=== PATIENT | female | born 1995 | race Two or more races ===

== ENCOUNTER 2020-03-01 11:13 | Inpatient (IN) | payer OTHER, BC ==
[~2020-03-01] VITALS: Ht 152.4 cm; Wt 78.0 kg
--- NOTE | ~2020-03-01 | OR ---
[facility] [address], [place] [address] Draft DATE OF OPERATION: 03/13/2020 SURGEON: Ngozi Maurer DO PREOPERATIVE DIAGNOSES: 1. Term . 2. Failure to progress. 3. Persistent occiput posterior position. POSTOPERATIVE DIAGNOSES: 1. Term . 2. Failure to progress. 3. Persistent occiput posterior position. PROCEDURE PERFORMED: Primary low transverse delivery. ADMINISTRATION CLERK: Yuri Garcia MD. ANESTHESIA: Epidural. COMPLICATIONS: None. ESTIMATED BLOOD LOSS: 500 mL. FINDINGS: Viable female , 6 pounds 5 ounces, born in the LOP position with Apgars of 8 and 9. No nuchal cord and somewhat cloudy amniotic fluid with no evidence of chorioamnionitis. Normal uterus and fallopian tubes bilaterally. Normal left ovary, but the right ovary is surgically absent. COMPLICATIONS: None. INDICATIONS: Ms. Trujillo is a pleasant 24-year-old, G1, P0 female, who presented to Labor and Delivery PATIENT NAME: ROMAN TRUJILLO OPERATIVE REPORT DATE OF : [birth year] REPORT #: [id number] PHYSICIAN: NGOZI MAURER DO PCP: KONSTANTIN BENNETT REPORT IS CONFIDENTIAL AND NOT TO BE RELEASED WITHOUT AUTHORIZATION [facility] [address] [place] [id number] Draft for induction of labor. Her labor progressed without complications and she received an epidural. The patient then progressed to 9 cm. No additional cervical progress was noted. IUPC was placed without difficulty and Pitocin was started. With adequate contractions, patient continued to not make any additional progress. The patient was 9 cm for nearly 5 hours. Decision was made to proceed with primary low transverse delivery for failure to progress. Risks, benefits, and alternatives were discussed in detail with the patient. Risks include were not limited to infection, bleeding, injury to surrounding GI/ structures. We also discussed implications regarding delivery in her future pregnancies. The patient understands and wishes to proceed with the procedure. TECHNIQUE: The patient was taken to the operating room. A time-out was performed to confirm correct patient, and correct procedure. Epidural anesthetic was bolused and found to be adequate. A Hull catheter had previously been inserted. ICPs were on and running. The patient received Ancef 2 g preoperatively and no heparin was indicated by preemie score. Once the epidural was found to be adequate, a Pfannenstiel skin incision was made approximately 2-3 cm above the pubic symphysis. The incision was carried down to the fascia in the midline. The fascia was nicked with the scalpel. Fascial incision was extended bilaterally using curved Hood scissors. The fascia was grasped with Sina's, elevated, and the underlying rectus muscles dissected off bluntly and sharply. The rectus muscles were then divided in the midline and the peritoneum was grasped with hemostats. The peritoneum was entered sharply and peritoneal incision was extended cephalad, caudad using blunt and sharp dissection. Normal appearing lower uterine segment and bladder. Wai self-retractor was placed without difficulty and hysterotomy was then performed using a surgical scalpel. The amniotic sac was entered and the amniotic fluid appeared to be somewhat cloudy with no evidence of meconium. Hysterotomy was extended bilaterally using blunt dissection. The surgeon's hand was placed into the uterine cavity and LOP position noted. The head was flexed and delivered into the abdomen without difficulty. The baby was then delivered easily with the assistance of fundal pressure. No nuchal cord was identified. The was vigorous and cried at delivery. The cord was doubly clamped and cut and the handed to the waiting pediatric team for further care. Dissection of the cord was obtained for routine analysis and the placenta was expressed intact with a centrally inserted three-vessel cord. The uterine cavity was cleared of any remaining products of conception or clot and the hysterotomy was then closed using 0 Vicryl in a running nonlocked manner. A 2nd imbricating stitch was applied in a vertical fashion with 0 Vicryl with good hemostasis and imbrication noted. The pelvis was irrigated and found to be hemostatic. The Wai self-retractor was removed and survey of the pelvis was performed. Normal bilateral fallopian tubes and normal left ovary. The right ovary is surgically absent. The uterus appears normal. ACell powder was applied to the lower uterine segment after again ensuring hemostasis. Peritoneum was reapproximated using PATIENT NAME: ROMAN TRUJILLO OPERATIVE REPORT DATE OF : [birth year] REPORT #: [id number] PHYSICIAN: NGOZI MAURER DO PCP: KONSTANTIN BENNETT REPORT IS CONFIDENTIAL AND NOT TO BE RELEASED WITHOUT AUTHORIZATION [facility] [address] [place] [address] Draft 2-0 Vicryl in a running nonlocked manner. The rectus muscle was examined and found to be hemostatic. It was reapproximated in the midline using 0 Vicryl and 3 loose interrupted sutures. Rectus was then irrigated and again found to be hemostatic. ACell powder was applied to the rectus sheath. Fascia was then reapproximated using 0 Vicryl in a running nonlocked manner. Subcu was reapproximated using 2-0 Vicryl in a running nonlocked manner after ensuring hemostasis in subcuticular space with judicious use of Bovie electrocautery and irrigation. The skin was then reapproximated using surgical maciel with good hemostasis, cosmesis. The uterus was Crede'd for scant amount of blood and the patient was taken to the PACU in good and stable condition. Sponge, needle, and instrument count were correct x2 at the end of the procedure. Dr. Garcia was present and participated in all portions of the procedure. Ngozi Maurer DO JHarveyW/MODL /[id number] Copies: ~ PATIENT NAME: ROMAN TRUJILLO OPERATIVE REPORT DATE OF : [birth year] REPORT #: [id number] PHYSICIAN: NGOZI MAURER DO PCP: KONSTANTIN BENNETT REPORT IS CONFIDENTIAL AND NOT TO BE RELEASED WITHOUT AUTHORIZATION
--- OUTSIDE RECORDS SUMMARY | ~2020-03-01 | XMS | Encounter Summary ---
Demographics + + + | Address | [address] | | | [place] [address] | + + + | Home Phone | | + + + | Preferred Language | Unknown | + + + | Marital Status | Single | + + + | Quaker Affiliation | Unknown | + + + | Race | Unknown | + + + | Ethnic Group | or | + + + Author + + + | Author | [facility] | | | and [place] | + + + | Organization | [facility] | | | and [place] | + + + | Address | Unknown | + + + | Phone | Unavailable | + + + Support + + +---------+ + | Name | Relationship | Address | Phone | + + +---------+ + | Daniela Trujillo | ECON | Unknown | | + + +---------+ + Care Team Providers + +------+ + | Care Drill Bit Sharpener Name | Role | Phone | + +------+ + PCP | Unavailable | + +------+ + Encounter Details +--------+ + + + + | Date | Type | Department | Care Team | Description | +--------+ + + + + | 11/22/ | Emergency | [facility] | Shdai Fernandez, | Chest tightness; | | 2019 | | [facility] | MD Jim Thomas | Lightheadedness; | | | | EMERGENCY LIN[place] | [place] [address] | Nausea | | | | [address] | [phone] | | | | | [place] | | | | | | [address] | | | | | | [phone] | | | +--------+ + + + + Social History + +-------+ +--------+------+ | Tobacco Use | Types | Packs/Day | Years | Date | | | | | Used | | + +-------+ +--------+------+ | Never Smoker | | | | | + +-------+ +--------+------+ + + + | Sex Assigned at | Date Recorded | | | | + + + | Not on file | | + + + documented as of this encounter Medications at Time of Discharge + + + +---------+ + + | Medication | Sig | Dispensed | Refills | Start | End Date | | | | | | Date | | + + + +---------+ + + | | Take by mouth. | | 0 | 11/23/19 | | | Levonorgestrel-Ethin | | | | 19 | | | yl Estrad (AVIANE | | | | | | | PO) | | | | | | + + + +---------+ + + | loratadine | Take 10 mg by mouth | | 0 | 11/23/19 | | | (CLARITIN) 10 mg | daily. | | | 19 | | | tablet | | | | | | + + + +---------+ + + documented as of this encounter ED Notes Conversion Transaction, Provider Unknown - 11/22/2018 10:40 AM PDTFormatting of this note m ight be different from the original. ED Notes by Sridhar Cortes RN at 11/22/181039 Author: Sridhar Cortes RN Service: (none) Author Type: Registered Nurse Filed: 06/12/19 1040 Date of Service: 11/22/18 1040 Status: Signed Grid Operator: Sridhar Cortes RN (Registered Nurse) Patient placed on monitoring specialist, tele called Sridhar Cortes RN 11/22/18 1040 vans, Biju Perry PA-C - 11/22/2018 10:28 AM PDT ED Provider Notes by Biju Ellison PA-C at 11/22/18 1028 Author: Biju Ellison PA-C Service: (none) Author Type: Physician Printed Circuit Boards Stripper Etcher Filed: 11/22/18 0325 Date of Service: 11/22/18 1028 Status: Attested Grid Operator: Biju Ellison PA-C (Physician Printed Circuit Boards Stripper Etcher) Cosigner: Shadi Fernandez MD at 11/22 1400 Attestation signed by Shadi Fernandez MD at 11/22/18 1400 I have reviewed the note and supervised the mid-level provider. Procedures [facility] EMERGENCY DEPARTMENT IN [place] History of Present Illness Patient Identification Yeyo Trujillo is a 23 y.o. female. Patient information was obtained from patient. History/Exam limitations: none. Patient presented to the Emergency Department by: Car Chief Complaint Chief Complaint Patient presents with Chest Pain c/o chest tightness, dizziness and nauseated since last night Dizziness Nausea The patient presents today complaining of dizziness, nausea, chest pressure, and shortness of breath. Her symptoms began last night with the dizziness, which she describes as feeling like she would pass out if she didn't stay still, and nausea without vomiting. She has had s everal similar episodes in the past that resolved after about 15 minutes. This time they did not resolve and she went to [facility] where they checked her blood pressure a nd sent her home, per patient. The chest pressure and shortness of breath began at around 02 :00 this morning, and she locates the feeling of chest tightness to the center of her chest without radiation. These symptoms have been constant since onset. Also describes mild epigas tric pain since last night, but was able to eat a fast-food breakfast burrito this morning w ithout issue. She is taking OCPs. She denies associated: fever/chills, recent URI-like Sx, d yspnea, bowel changes, or urinary changes. History reviewed. No pertinent past medical history. Past Surgical History Procedure Laterality Date OOPHORECTOMY Right 2013 Prior to Admission medications Medication Sig Start Date End Date Taking? Authorizing Provider Levonorgestrel-Ethinyl Estrad (AVIANE PO) Take by mouth. Yes Historical Provider loratadine (CLARITIN) 10 MG tablet Take 10 mg by mouth daily. Yes Historical Provider No Known Allergies Social History Social History Marital status: Spouse name: N/A Number of children: N/A Years of education: N/A Occupational History Not on file. Social History Main Topics Smoking status: Never Smoker Smokeless tobacco: Never Used Alcohol use Yes Drug use: No Sexual activity: Not on file Other Topics Concern Not on file Social History Narrative No narrative on file History reviewed. No pertinent family history. ROS Review of Systems Constitutional: Negative for: fever, chills, fatigue, sweats or weight loss Eyes: Negative for: decreased vision or irritated eyes Nose: Negative for: nosebleed Throat: Negative for: mouth sores Cardiovascular/Respiratory: Positive for: chest pain, shortness of breath Negative for: cough Gastrointestinal: Positive for: abdominal pain, nausea Negative for: vomiting, diarrhea, black or bloody stools Genitourinary: Negative for: dysuria, hematuria, urinary problems Musculoskeletal: Positive for: right calf soreness Negative for: myalgias and arthralgias Skin: Negative for: laceration or lesion Neuro and psych: Negative for: fainting, head injury, seizure, trouble walking Endocrine/Heme/Lymph: Negative for: swollen lymph nodes, easy bruising Physical Exam BP 156/85 (BP Location: Right upper arm) | Pulse 92 | Temp 98.4 F (36.9 C) (Oral) | Resp 16 | Ht 1.524 m (5') | Wt 61.9 kg (136 lb 7.4 oz) | LMP 11/05/2018 (Approximate) | SpO2 100% | BMI 26.65 kg/m Pulse Oximetry interpretation: Normal General: Alert and oriented, in no apparent distress Eyes: Normal inspection, PERRLA, non-icteric No vertical or horizontal nystagmus Neck: Normal inspection Supple No lymphadenopathy No meningismus Cardiovascular: Rate and rhythm normal No murmurs Respiratory: Breath sounds normal bilaterally Abdomen: Mild tenderness to palpation in epigastrium and RUQ, negative García's sign Otherwise soft, non-tender, non-distended No guarding or rebound tenderness Genitourinary: Deferred Rectal exam: Deferred Skin: Color normal Warm and dry No rash Neuro: CN II-XII intact No motor or sensory deficit Normal gait, negative rhomberg and finger-nose ED Course Medical Decision Making and Emergency Department Course ED Department Course Bp elevated, vitals otherwise within normal limits. The patient presents today with a number of non-specific symptoms since last evening. The D Dx includes, but is not limited to: Anxiety, ACS, Pulmonary Embolism, POTS, Dehydration, am lexie others. We will obtain a cardiac panel to evaluate for cardiovascular etiology in additi on to an EKG, thyroid panel, troponin, D-Dimer, UA, Urine , and CXR prior to re-mike luation. The epigastric pain is likely related to the other acute symptoms, but may also be Gastritis, PUD, or Pancreatitis -- we will obtain a Lipase as well. 1108 -- D-dimer negative, CTA Chest not warranted based on this result. Awaiting other resu lts. 1125 -- Labs unremarkable, UA contaminated but not suspicious for infection. Awaiting resul ts of CXR. 1140 -- CXR negative for acute cardiopulmonary process, no cardiomegaly. 1145 -- Re-evaluated patient. She denies acute pain and nausea, finished receiving 1L of IV fluids. We discussed that the results of her labs are unremarkable for acute emergency cond itions, and that she's appropriate for discharge home. Her orthostatics are indicative of mi ld dehydration, so we recommend that she rehydrates PO today and rests. She was also encoura ged to follow up with her PCP for additional evaluation if she continues to experience these symptoms. Records Reviewed Nursing notes. Labs & Radiology Results Laboratory Evaluation Results Procedure Component Value Ref Range Date/Time TSH [[id number]] Collected: 11/22/18 1033 Order Status: Completed Specimen: Blood Updated: 11/22/18 1117 TSH 1.723 0.450 - 5.100 uIU/mL Lipase [[id number]] Collected: 11/22/18 1033 Order Status: Completed Specimen: Blood Updated: 11/22/18 111 LIPASE 98 73 - 393 U/L Cardiac Panel [[id number]] (Abnormal) Collected: 11/22/18 1033 Order Status: Completed Updated: 11/22/18 1117 WBC 5.86 3.80 - 11.00 K/uL RBC 4.60 3.70 - 5.10 M/uL HGB 14.1 11.3 - 15.5 g/dL HCT 41.4 34.0 - 46.0 % MCV 90.0 80.0 - 100.0 fl MCH 30.7 27.0 - 34.0 pg MCHC 34.1 32.0 - 35.5 g/dL RDW SD 43.1 37 - 53 fl PLT 274 150 - 400 K/uL MPV 9.5 fl DIFF TYPE AUTOMATED nRBC 0.0 0 /100WBC NEUTROPHILS 63.70 % IMMATURE GRANULOCYTE 0.30 % LYMPHOCYTES 28.50 % MONOCYTES 5.80 % EOSINOPHILS 1.50 % BASOPHILS 0.20 % NEUTROPHILS ABS 3.73 1.90 - 7.40 K/uL IMMATURE GRAN ABS 0.02 K/uL LYMPHOCYTES ABS 1.67 1.00 - 3.90 K/uL MONOCYTES ABS 0.34 0.00 - 0.80 K/uL EOSINOPHILS ABS 0.09 0.00 - 0.50 K/uL BASOPHILS ABS 0.01 0.00 - 0.10 K/uL SODIUM 140 135 - 145 mmol/L POTASSIUM 4.0 3.5 - 4.9 mmol/L CHLORIDE 103 99 - 109 mmol/L CO2 27 23 - 32 mmol/L ANION GAP AGAP 14 5 - 20 mmol/L GLUCOSE 122 (H) 65 - 99 mg/dL BUN 11 8 - 25 mg/dL CREATININE 0.77 0.50 - 1.00 mg/dL BUN/CREAT 14 CALCIUM 9.2 8.5 - 10.5 mg/dL TOTAL PROTEIN 7.8 6.3 - 8.2 g/dL Albumin 3.7 3.6 - 5.0 g/dL GLOBULIN 4.1 1.3 - 4.9 g/dL A/G 0.9 (L) 1.0 - 2.4 TBIL 0.4 0.1 - 1.5 mg/dL ALK PHOS 86 35 - 115 U/L AST 17 10 - 45 U/L ALT 15 10 - 65 U/L EGFR >60 >60 mL/min/1.73m2 CPK 75 30 - 240 U/L INR 0.9 APTT 27 23 - 32 seconds MMB <0.5 (L) 0.5 - 3.6 ng/mL CK-MB Index UNABLE TO CALCULATE Troponin I [[id number]] Collected: 11/22/181032 Order Status: Completed Specimen: Blood Updated: 11/22/187 TROPONIN I <0.04 0.00 - 0.10 ng/mL T4, Free [[id number]] Collected: 11/22/181032 Order Status: Completed Specimen: Blood Updated: 11/22/18 111 FREE T4 1.0 0.7 - 1.5 ng/dL Urine microscopic only [[id number]] (Abnormal) Collected: 11/22/181034 Order Status: Completed Updated: 11/22/18 1104 WBC 0-2 0 - 5 /hpf RBC 1-5 0 - 5 /hpf EPITHELIAL >100 /lpf BACTERIA 3+ (A) NONE SEEN D-dimer, quantitative [[id number]] Collected: 11/22/181032 Order Status: Completed Specimen: Blood Updated: 11/22/18 1104 D DIMER, QUANTITATIVE 0.27 0.19 - 0.50 mg/L FEU Urinalysis (reflex to micro) [[id number]] (Abnormal) Collected: 11/22/181034 Order Status: Completed Specimen: Urine from Urine, Clean Catch Updated: 11/22/18 110 4 COLOR UA YELLOW CLARITY HAZY Specific [place], UA 1.025 1.001 - 1.035 LEUKOCYTE ESTERASE NEGATIVE NEGATIVE NITRITE NEGATIVE NEGATIVE UROBILINOGEN 0.2 <1.1 mg/dL PROTEIN NEGATIVE NEGATIVE mg/dL PH,URINE 5.5 4.6 - 8.0 BLOOD LARGE (A) NEGATIVE KETONES NEGATIVE NEGATIVE mg/dL BILIRUBIN NEGATIVE NEGATIVE GLUCOSE NEGATIVE NEGATIVE mg/dL Urine Test [[id number]] Collected: 11/22/181034 Order Status: Completed Specimen: Urine from Urine, Clean Catch Updated: 11/22/18 105 7 Preg Test, Ur NEGATIVE NEGATIVE Radiology and EKG Evaluation Imaging Results XR Chest PA and Lateral (Final result) Result time 11/22/18 11:36:00 Final result by Miguelangel Day MD (11/22/18 11:36:00) Impression: No acute cardiopulmonary abnormality Signed by: Hasmukh Day, Miguelangel Sign Date/Time: 11/22/2018 11:36 AM Narrative: CHEST TWO VIEWS CLINICAL INFORMATION: Chest pain, Elevated blood pressure. COMPARISON: None FINDINGS: Heart, lungs and vessels normal. No pneumothorax, pleural effusion or adenopathy. No significant bone abnormality. EKG Interpretation Rhythm: Sinus Ventricular Rate: 93 GA Interval: Normal ST Segments: Normal Significant Q-waves: None Blocks: None [place]: Normal without deviation Additional Comments: EKG reviewed and interpreted by Dr. Fernandez Diagnosis & Disposition ED Diagnoses Final diagnoses Chest tightness Lightheadedness Nausea Disposition: ED Disposition ED Disposition Condition Comment Discharge Good Follow-up Information Follow up With Specialties Details Why Contact Info [facility] Emergency Department in [place] [facility] If symptoms worsen [address] [address] Vivien Myers MD Family Medicine Schedule an appointment as soon as possible for a v isit For a re-check if symptoms continue Discharge Medications: Discharge Medication List as of 11/22/2018 11:52 AM START taking these medications Details ondansetron (ZOFRAN-ODT) 4 MG disintegrating tablet Take 1 tablet by mouth every 8 (eight) hours as needed for Nausea for up to 7 days., Starting 11/22/2018, Until Tue11/29/2018, Elaine Ellison PA-C 11/22/18 1336 Shadi Fernandez MD 11/22/18 1400 documented in this encounter Plan of Treatment Not on filedocumented as of this encounter Procedures + +--------+ + + + | Procedure Name | Priori | Date/Time | Associated Diagnosis | Comments | | | ty | | | | + +--------+ + + + | XR CHEST 2 VIEWS | Routin | 11/22/2018 | | Results for this | | | e | 11:08 AM | | procedure are in the | | | | PDT | | results section. | + +--------+ + + + | URINALYSIS WITH | Routin | 11/22/2018 | | Results for this | | MICROSCOPIC IF | e | 10:35 AM | | procedure are in the | | INDICATED | | PDT | | results section. | + +--------+ + + + | URINALYSIS, | Routin | 11/22/2018 | | Results for this | | MICROSCOPIC ONLY | e | 10:35 AM | | procedure are in the | | | | PDT | | results section. | + +--------+ + + + | HCG, URINE, QUAL | Routin | 11/22/2018 | | Results for this | | | e | 10:35 AM | | procedure are in the | | | | PDT | | results section. | + +--------+ + + + | HISTORICAL LAB PANEL | Routin | 11/22/2018 | | Results for this | | RESULT | e | 10:33 AM | | procedure are in the | | | | PDT | | results section. | + +--------+ + + + | TROPONIN I | Routin | 11/22/2018 | | Results for this | | | e | 10:33 AM | | procedure are in the | | | | PDT | | results section. | + +--------+ + + + | D-DIMER | Routin | 11/22/2018 | | Results for this | | | e | 10:33 AM | | procedure are in the | | | | PDT | | results section. | + +--------+ + + + | TSH | Routin | 11/22/2018 | | Results for this | | | e | 10:33 AM | | procedure are in the | | | | PDT | | results section. | + +--------+ + + + | T4, FREE | Routin | 11/22/2018 | | Results for this | | | e | 10:33 AM | | procedure are in the | | | | PDT | | results section. | + +--------+ + + + | LIPASE | Routin | 11/22/2018 | | Results for this | | | e | 10:33 AM | | procedure are in the | | | | PDT | | results section. | + +--------+ + + + documented in this encounter Results XR Chest 2 Vws (11/22/2018 11:08 AM PDT) + + | Specimen | + + | | + + + + + | Impressions | Performed At | + + + | No acute cardiopulmonary abnormality Signed by: Hasmukh Day Isaac | | | Sign Date/Time: 11/22/2018 11:36 AM | | + + + + + + | Narrative | Performed At | + + + | CHEST TWO VIEWS CLINICAL INFORMATION: Chest pain, Elevated blood | | | pressure. COMPARISON: None FINDINGS: Heart, lungs and vessels | | | normal. No pneumothorax, pleural effusion or adenopathy. No | | | significant bone abnormality. | | + + + + + | Procedure Note | + + | Demario, Rad Conversion - 01/24/2019 12:08 AM PDT CHEST TWO VIEWS | | CLINICAL INFORMATION: | | Chest pain, Elevated blood pressure. | | COMPARISON: | | None | | FINDINGS: | | Heart, lungs and vessels normal. No pneumothorax, pleural effusion or | | adenopathy. No significant bone abnormality. | | IMPRESSION: | | No acute cardiopulmonary abnormality | | Signed by: Hasmukh Day Isaac | | Sign Date/Time: 11/22/2018 11:36 AM | + + , Urine, Qual (11/22/2018 10:35 AM PDT) + + + + + + | Component | Value | Ref Range | Performed | Pathologist | | | | | At | Signature | + + + + + + | Preg Test, | NEGATIVEComment: Testing | | EXTERNAL | | | Ur | performed at [facility], [address] | [address] | | | | [address], | | | | | | [place] [address] | | | | + + + + + + + + | Specimen | + + | Urine specimen | | (specimen) | + + + +---------+ + + | Performing | Address | City/State/Zipcode | Phone Number | | Organization | | | | + +---------+ + + | EXTERNAL LAB | | | | + +---------+ + + Urinalysis, Microscopic Only (11/22/2018 10:35 AM PDT) + + + + + + | Component | Value | Ref Range | Performed | Pathologist | | | | | At | Signature | + + + + + + | WBC, UA | 0-2 | 0 - 5 /hpf | EXTERNAL | | | | | | LAB | | + + + + + + | RBC, UA | 1-5 | 0 - 5 /hpf | EXTERNAL | | | | | | LAB | | + + + + + + | Epithelial | >100 | /lpf | EXTERNAL | | | Cells | | | LAB | | + + + + + + | Bacteria, | 3+ (A)Comment: Testing | | EXTERNAL | | | UA | performed at [facility], [address] | [address] | | | | [address], | | | | | | [place] [address] | | | | + + + + + + + + | Specimen | + + | | + + + +---------+ + + | Performing | Address | City/State/Zipcode | Phone Number | | Organization | | | | + +---------+ + + | EXTERNAL LAB | | | | + +---------+ + + Urinalysis with Microscopic if Indicated (11/22/2018 10:35 AM PDT) + + + + + + | Component | Value | Ref Range | Performed | Pathologist | | | | | At | Signature | + + + + + + | Color | YELLOW | | EXTERNAL | | | | | | LAB | | + + + + + + | Clarity, | HAZY | | EXTERNAL | | | Urine | | | LAB | | + + + + + + | Specific | 1.025 | 1.001 - 1.035 | EXTERNAL | | | [place], | | | LAB | | | Urine | | | | | + + + + + + | Leukocyte | NEGATIVE | | EXTERNAL | | | Esterase, | | | LAB | | | Urine | | | | | + + + + + + | Nitrite, | NEGATIVE | | EXTERNAL | | | Urine | | | LAB | | + + + + + + | Urobilinoge | 0.2 | mg/dL | EXTERNAL | | | n, Urine | | | LAB | | + + + + + + | Protein, | NEGATIVE | mg/dL | EXTERNAL | | | Urine | | | LAB | | + + + + + + | pH, Urine | 5.5 | 4.6 - 8.0 | EXTERNAL | | | | | | LAB | | + + + + + + | Blood, | LARGE (A) | | EXTERNAL | | | Urine | | | LAB | | + + + + + + | Ketones | NEGATIVE | mg/dL | EXTERNAL | | | | | | LAB | | + + + + + + | Bilirubin, | NEGATIVE | | EXTERNAL | | | Urine | | | LAB | | + + + + + + | Glucose, | NEGATIVEComment: Testing | mg/dL | EXTERNAL | | | Urine | performed at [facility], [address] | | [address] | | | | [address], | | | | | | [place] [address] | | | | + + + + + + + + | Specimen | + + | Urine specimen | | (specimen) | + + + +---------+ + + | Performing | Address | City/State/Zipcode | Phone Number | | Organization | | | | + +---------+ + + | EXTERNAL LAB | | | | + +---------+ + + HISTORICAL LAB PANEL RESULT (11/22/2018 10:33 AM PDT) + + + + + + | Component | Value | Ref Range | Performed | Pathologist | | | | | At | Signature | + + + + + + | WBC | 5.86 | 3.80 - 11.00 | EXTERNAL | | | | | K/uL | LAB | | + + + + + + | Non- | 4.60 | 3.70 - 5.10 | EXTERNAL | | | Red Blood | | M/uL | LAB | | | Cells | | | | | | Counted | | | | | + + + + + + | Hemoglobin | 14.1 | 11.3 - 15.5 | EXTERNAL | | | | | g/dL | LAB | | + + + + + + | Hematocrit, | 41.4 | 34.0 - 46.0 % | EXTERNAL | | | POC | | | LAB | | + + + + + + | MCV | 90.0 | 80.0 - 100.0 fl | EXTERNAL | | | | | | LAB | | + + + + + + | MCH | 30.7 | 27.0 - 34.0 pg | EXTERNAL | | | | | | LAB | | + + + + + + | MCHC | 34.1 | 32.0 - 35.5 | EXTERNAL | | | | | g/dL | LAB | | + + + + + + | RDW-CV | 43.1 | 37 - 53 fl | EXTERNAL | | | | | | LAB | | + + + + + + | Platelet | 274 | 150 - 400 K/uL | EXTERNAL | | | Count | | | LAB | | | Plasma | | | | | + + + + + + | MPV | 9.5Comment: NO NORMAL | fl | EXTERNAL | | | | RANGE ESTABLISHED | | LAB | | + + + + + + | Differentia | AUTOMATED | | EXTERNAL | | | l Type | | | LAB | | + + + + + + | Nucleated | 0.0 | /100WBC | EXTERNAL | | | Red Blood | | | LAB | | | Cells | | | | | + + + + + + | % Segmented | 63.70 | % | EXTERNAL | | | | | | LAB | | | Neutrophils | | | | | + + + + + + | % Immature | 0.30 | % | EXTERNAL | | | Granulocyte | | | LAB | | | s | | | | | + + + + + + | % | 28.50 | % | EXTERNAL | | | Lymphocytes | | | LAB | | + + + + + + | % Monocytes | 5.80 | % | EXTERNAL | | | | | | LAB | | + + + + + + | % | 1.50 | % | EXTERNAL | | | Eosinophils | | | LAB | | + + + + + + | % Basophils | 0.20 | % | EXTERNAL | | | | | | LAB | | + + + + + + | Absolute | 3.73 | 1.90 - 7.40 | EXTERNAL | | | Segmented | | K/uL | LAB | | | Neutrophils | | | | | + + + + + + | Absolute | 0.02Comment: NO NORMAL | K/uL | EXTERNAL | | | Immature | RANGE ESTABLISHED | | LAB | | | Granulocyte | | | | | | s | | | | | + + + + + + | Absolute | 1.67 | 1.00 - 3.90 | EXTERNAL | | | Lymphocytes | | K/uL | LAB | | + + + + + + | Absolute | 0.34 | 0.00 - 0.80 | EXTERNAL | | | Monocytes | | K/uL | LAB | | + + + + + + | Absolute | 0.09 | 0.00 - 0.50 | EXTERNAL | | | Eosinophils | | K/uL | LAB | | + + + + + + | Absolute | 0.01 | 0.00 - 0.10 | EXTERNAL | | | Basophils | | K/uL | LAB | | + + + + + + | Na | 140 | 135 - 145 | EXTERNAL | | | | | mmol/L | LAB | | + + + + + + | K | 4.0 | 3.5 - 4.9 | EXTERNAL | | | | | mmol/L | LAB | | + + + + + + | Cl | 103 | 99 - 109 mmol/L | EXTERNAL | | | | | | LAB | | + + + + + + | CO2 | 27 | 23 - 32 mmol/L | EXTERNAL | | | | | | LAB | | + + + + + + | Anion Gap | 14 | 5 - 20 mmol/L | EXTERNAL | | | | | | LAB | | + + + + + + | Glucose, | 122 (H) | 65 - 99 mg/dL | EXTERNAL | | | Fasting | | | LAB | | + + + + + + | BUN | 11 | 8 - 25 mg/dL | EXTERNAL | | | | | | LAB | | + + + + + + | Creatinine | 0.77 | 0.50 - 1.00 | EXTERNAL | | | | | mg/dL | LAB | | + + + + + + | BUN/Creatin | 14 | | EXTERNAL | | | ine Ratio | | | LAB | | + + + + + + | Calcium | 9.2 | 8.5 - 10.5 | EXTERNAL | | | | | mg/dL | LAB | | + + + + + + | Protein, | 7.8 | 6.3 - 8.2 g/dL | EXTERNAL | | | Total | | | LAB | | + + + + + + | Albumin | 3.7 | 3.6 - 5.0 g/dL | EXTERNAL | | | | | | LAB | | + + + + + + | Globulin | 4.1 | 1.3 - 4.9 g/dL | EXTERNAL | | | | | | LAB | | + + + + + + | A/G Ratio | 0.9 (L) | 1.0 - 2.4 | EXTERNAL | | | | | | LAB | | + + + + + + | Bilirubin | 0.4 | 0.1 - 1.5 mg/dL | EXTERNAL | | | Total | | | LAB | | + + + + + + | ALP, | 86 | 35 - 115 U/L | EXTERNAL | | | External | | | LAB | | + + + + + + | AST | 17 | 10 - 45 U/L | EXTERNAL | | | | | | LAB | | + + + + + + | ALT | 15 | 10 - 65 U/L | EXTERNAL | | | | | | LAB | | + + + + + + | Estimated | >60Comment: GFR <60: | mL/min/1.73m2 | EXTERNAL | | | GFR | CHRONIC KIDNEY DISEASE, | | LAB | | | | IF FOUND OVER A 3 MONTH | | | | | | PERIOD.GFR <15: KIDNEY | | | | | | FAILURE.FOR | | | | | | AMERICANS, MULTIPLY THE | | | | | | CALCULATED GFR BY | | | | | | 1.210.This eGFR is | | | | | | calculated using the | | | | | | MDRD IDMS traceable | | | | | | equation. | | | | + + + + + + | CK, Total | 75 | 30 - 240 U/L | EXTERNAL | | | | | | LAB | | + + + + + + | INR | 0.9Comment: REFERENCE | | EXTERNAL | | | | RANGE:0.9 - 1.2 | | LAB | | | | NON-ANTICOAGULATED2.0 | | | | | | - 3.0 ALL OTHER | | | | | | THERAPEUTIC | | | | | | INDICATIONS2.5 - 3.5 | | | | | | MECHANICAL HEART VALVES, | | | | | | RECURRENT OR SYSTEMIC | | | | | | EMBOLISM | | | | + + + + + + | aPTT, | 27 | 23 - 32 seconds | EXTERNAL | | | Patient | | | LAB | | + + + + + + | CK-MB | <0.5 (L) | 0.5 - 3.6 ng/mL | EXTERNAL | | | | | | LAB | | + + + + + + | CK-MB Index | UNABLE TO | | EXTERNAL | | | | CALCULATEComment: | | LAB | | | | Testing performed at | | | | | | [facility], [address], | | | | | | [place] [address] | | | | + + + + + + + + | Specimen | + + | | + + + +---------+ + + | Performing | Address | City/State/Zipcode | Phone Number | | Organization | | | | + +---------+ + + | EXTERNAL LAB | | | | + +---------+ + + Troponin I (11/22/2018 10:33 AM PDT) + + + + + + | Component | Value | Ref Range | Performed | Pathologist | | | | | At | Signature | + + + + + + | Troponin I, | <0.04Comment: 0.00 to | 0.00 - 0.10 | EXTERNAL | | | Qual | 0.10 CONSISTENT WITH | ng/mL | LAB | | | | NORMAL POPULATION0.11 to | | | | | | 0.60 CONSISTENT WITH | | | | | | INCREASED RISK FOR | | | | | | ADVERSE OUTCOMES> 0.60 | | | | | | CONSISTENT | | | | | | WITH WHO CRITERIA FOR | | | | | | ACUTE HI Testing | | | | | | performed at [facility], [address] | | | | | [address], | | | | | | [place] [address] | | | | + + + + + + + + | Specimen | + + | Blood specimen | | (specimen) | + + + +---------+ + + | Performing | Address | City/State/Zipcode | Phone Number | | Organization | | | | + +---------+ + + | EXTERNAL LAB | | | | + +---------+ + + D-Dimer (11/22/2018 10:33 AM PDT) + + + + + + | Component | Value | Ref Range | Performed | Pathologist | | | | | At | Signature | + + + + + + | D-DIMER, | 0.27Comment: D Dimer | 0.19 - 0.50 | EXTERNAL | | | MANUAL | results less than 0.50 | mg/L FEU | LAB | | | | mg/L FEU may rule out | | | | | | DVT and PE. However, | | | | | | all laboratory results | | | | | | should be interpreted in | | | | | | the context of all | | | | | | available clinical, | | | | | | radiologic and | | | | | | laboratory | | | | | | information.Testing | | | | | | performed at [facility], [address] | [address] | | | [address], | | | | | | [place] [address] | | | | + + + + + + + + | Specimen | + + | Blood specimen | | (specimen) | + + + +---------+ + + | Performing | Address | City/State/Zipcode | Phone Number | | Organization | | | | + +---------+ + + | EXTERNAL LAB | | | | + +---------+ + + TSH (11/22/2018 10:33 AM PDT) + + + + + + | Component | Value | Ref Range | Performed | Pathologist | | | | | At | Signature | + + + + + + | TSH | 1.723Comment: Testing | 0.450 - 5.100 | EXTERNAL | | | | performed at [facility], [address] | uIU/mL | LAB | | | | [address], | | | | | | [place] [address] | | | | + + + + + + + + | Specimen | + + | Blood specimen | | (specimen) | + + + +---------+ + + | Performing | Address | City/State/Zipcode | Phone Number | | Organization | | | | + +---------+ + + | EXTERNAL LAB | | | | + +---------+ + + T4, Free (11/22/2018 10:33 AM PDT) + + + + + + | Component | Value | Ref Range | Performed | Pathologist | | | | | At | Signature | + + + + + + | FREE T4 | 1.0Comment: Testing | 0.7 - 1.5 ng/dL | EXTERNAL | | | (REF) | performed at [facility], [address] | | LAB | | | | [address], | | | | | | [place] [address] | | | | + + + + + + + + | Specimen | + + | Blood specimen | | (specimen) | + + + +---------+ + + | Performing | Address | City/State/Zipcode | Phone Number | | Organization | | | | + +---------+ + + | EXTERNAL LAB | | | | + +---------+ + + Lipase (11/22/2018 10:33 AM PDT) + + + + + + | Component | Value | Ref Range | Performed | Pathologist | | | | | At | Signature | + + + + + + | Lipase | 98Comment: Testing | 73 - 393 U/L | EXTERNAL | | | | performed at [facility], [address] | | LAB | | | | [address], | | | | | | [place] [address] | | | | + + + + + + + + | Specimen | + + | Blood specimen | | (specimen) | + + + +---------+ + + | Performing | Address | City/State/Zipcode | Phone Number | | Organization | | | | + +---------+ + + | EXTERNAL LAB | | | | + +---------+ + + documented in this encounter Visit Diagnoses + + | Diagnosis | + + | Chest tightness Other chest pain | + + | Lightheadedness Dizziness and giddiness | + + | Nausea Nausea alone | + + documented in this encounter"
--- OUTSIDE RECORDS SUMMARY | ~2020-03-01 | XMS | Encounter Summary ---
Demographics + + + | Address | [address] | | | [place] [address] | + + + | Home Phone | | + + + | Preferred Language | Unknown | + + + | Marital Status | Single | + + + | Methodist Affiliation | Unknown | + + + | Race | Unknown | + + + | Ethnic Group | or | + + + Author + + + | Author | [facility] | | | and [place] | + + + | Organization | [facility] | | | and [place] | [...] Team Providers + +------+ + | Care Electrical Prospecting Engineer Name | Role | Phone | + +------+ + PCP | Unavailable | + +------+ + Encounter Details +--------+ + + + + | Date | Type | Department | Care Team | Description | +--------+ + + + + | 04/02/ | Hospital | [facility] | [facility] | | | 2014 | Encounter | HOSPITAL NURSERY | [address] [address] | | | | | [address] [place] | [facility], [place] | | | | | [place] | [address] | | | | | [address] | [phone] | | | | | [phone] | | | +--------+ + + + + Social History + +-------+ +--------+------+ | Tobacco Use | Types | Packs/Day | Years | Date | | | | | Used | | + +-------+ +--------+------+ | Never Assessed | | | | | + +-------+ +--------+------+ + + + | Sex Assigned at | Date Recorded | | | | + + + | Not on file | | + + + documented as of this encounter Plan of Treatment Not on filedocumented as of this encounter Visit Diagnoses Not on filedocumented in this encounter"
--- OUTSIDE RECORDS SUMMARY | ~2020-03-01 | XMS | Clinical Summary ---
Demographics + + + | Address | [address] | | | [place] [address] | + + + | Home Phone | | + + + | Preferred Language | Unknown | + + + | Marital Status | Single | + + + | Confucianist Affiliation | Unknown | + + + | Race | Unknown | + + + | Ethnic Group | or | + + + Author + + + | Author | [facility] | | | and [place] | + + + | Organization | [facility] | | | and [...] Team Providers + +------+ + | Care Operations Leader Name | Role | Phone | + +------+ + | Vivien Myers MD | PCP | | + +------+ + Allergies No Known Allergies Medications + + + +---------+------+------+-------+ | Medication | Sig | Dispensed | Refills | Star | End | Statu | | | | | | t | Date | s | | | | | | Date | | | + + + +---------+------+------+-------+ | | Take by mouth. | | 0 | 06/1 | | Activ | | Levonorgestrel-Ethin | | | | / | | e | | yl Estrad (AVIANE | | | | 19 | | | | PO) | | | | | | | + + + +---------+------+------+-------+ | loratadine | Take 10 mg by mouth | | 0 | 06/1 | | Activ | | (CLARITIN) 10 mg | daily. | | | 2/20 | | e | | tablet | | | | 19 | | | + + + +---------+------+------+-------+ Active Problems Not on file Social History + +-------+ +--------+------+ | Tobacco [...] on file | | + + + Last Filed Vital Signs + + + + + | Vital Sign | Reading | Time Taken | Comments | + + + + + | Blood Pressure | 113/71 | 11/22/2018 12:04 PM | | | | | PDT | | + + + + + | Pulse | 82 | 11/22/2018 12:04 PM | | | | | PDT | | + + + + + | Temperature | 36.9 C (98.4 F) | 11/22/2018 12:04 PM | | | | | PDT | | + + + + + | Respiratory Rate | 16 | 11/22/2018 12:04 PM | | | | | PDT | | + + + + + | Oxygen Saturation | 97% | 04/02/2015 8:05 AM | | | | | PDT | | + + + + + | Inhaled Oxygen | - | - | | | Concentration | | | | + + + + + | Weight | 61.9 kg (136 lb 7.5 | 11/22/2018 12:04 PM | | | | oz) | PDT | | + + + + + | Height | 152.4 cm (5') | 11/22/2018 12:04 PM | | | | | PDT | | + + + + + | Body Mass Index | 26.65 | 11/22/2018 12:04 PM | | | | | PDT | | + + + + + Plan of Treatment + + +-------+ + | Health Maintenance | Due Date | Last | Comments | | | | Done | | + + +-------+ + | Hepatitis C | | | | | Screening | 3 | | | + + +-------+ + | Vaccine: HPV (1 - | | | | | 2-dose series) | 4 | | | + + +-------+ + | Vaccine: | | | | | Dtap/Tdap/Td (1 - | 2 | | | | Tdap) | | | | + + +-------+ + | Cervical Cancer | | | | | Screening (Pap) | 4 | | | + + +-------+ + | Vaccine: Influenza | | | | | (#1) | 0 | | | + + +-------+ + Results Not on filefrom Last 3 Months"
--- OUTSIDE RECORDS SUMMARY | ~2020-03-01 | XMS | Encounter Summary ---
Demographics + + + | Address | [address] | | | [place] [address] | + + + | Home Phone | | + + + | Preferred Language | Unknown | + + + | Marital Status | Single | + + + | Gnosticist Affiliation | Unknown | + + + | Race | Unknown | + + + | Ethnic Group | or | + + + Author + + + | Author | [facility] | | | and [place] | + + + | Organization | [facility] | | | and [place] [...] Team Providers + +------+ + | Care Wash House Supervisor Name | Role | Phone | + +------+ + | Vivien Myers MD | PCP | | + +------+ + Encounter Details +--------+ + + + + | Date | Type | Department | Care Team | Description | +--------+ + + + + | 11/22/ | Orders Only | [facility] | Conversion | | | 2019 | | CONVERSION DEP [address] | Transaction, | | | | | [address] | Provider Unknown | | | | | [place] | [phone] | | | | | [address] | | | | | | [phone] | | | +--------+ + + + [...]
--- OUTSIDE RECORDS SUMMARY | ~2020-03-01 | XMS | Encounter Summary ---
Demographics + + + | Address | [address] | | | [place] [address] | + + + | Home Phone | | + + + | Preferred Language | Unknown | + + + | Marital Status | Single | + + + | Voodoo Affiliation | Unknown | + + + | Race | Unknown | + + + | Ethnic Group | or | + + + Author + + + | Author | [facility] | | | and [place] | + + + | Organization | [facility] | [...] Team Providers + +------+ + | Care Washtub Worker Name | Role | Phone | + +------+ + PCP | Unavailable | + +------+ + Encounter Details +--------+ + + + + | Date | Type | Department | Care Team | Description | +--------+ + + + + | 04/02/ | Hospital | [facility] | [facility] | | | 2014 | Encounter | HOSPITAL LABORATORY | [facility] [address] | | | | | [address] | [facility] [place] | | | | | [place] | [address] | | | | | [address] | [phone] | | | | | [phone] | | | +--------+ + + + [...] + +--------+ + + + | URINALYSIS | STAT | 04/02/2015 | | Results for this | | | | 9:41 AM | | procedure are in the | | | | PDT | | results section. | + +--------+ + + + | CBC W/AUTO | STAT | 04/02/2015 | | Results for this | | DIFFERENTIAL | | 8:46 AM | | procedure are in the | | | | PDT | | results section. | + +--------+ + + + | COMPREHENSIVE | STAT | 04/02/2015 | | Results for this | | METABOLIC PANEL | | 8:46 AM | | procedure are in the | | | | PDT | | results section. | + +--------+ + + + documented in this encounter Results Urinalysis (04/02/2015 9:41 AM PDT) + + + + + + | Component | Value | Ref Range | Performed | Pathologist | | | | | At | Signature | + + + + + + | Source | Clean Catch / VOID | | EXTERNAL | | | | | | LAB | | + + + + + + | Clarity, | CLEAR | CLEAR | EXTERNAL | | | Urine | | | LAB | | + + + + + + | Color, | YELLOW | YELLOW | EXTERNAL | | | Urine | | | LAB | | + + + + + + | Specific | 1.02 | 1.005 - 1.030 | EXTERNAL | | | Sodus, | | | LAB | | | Urine | | | | | + + + + + + | pH, Urine | 5 | 5.0 - 7.0 pH | EXTERNAL | | | | | | LAB | | + + + + + + | Leukocyte | NEGATIVE | NEGATIVE /uL | EXTERNAL | | | Esterase, | | | LAB | | | Urine | | | | | + + + + + + | Nitrite, | NEGATIVE | NEGATIVE | EXTERNAL | | | Urine | | | LAB | | + + + + + + | Protein, | NEGATIVE | NEGATIVE mg/dL | EXTERNAL | | | Urine | | | LAB | | + + + + + + | Glucose, | NORMAL | NORMAL mg/dL | EXTERNAL | | | Urine | | | LAB | | + + + + + + | Reducing | NOT REQUIRED | NEGATIVE | EXTERNAL | | | Substance, | | | LAB | | | UA, POC | | | | | + + + + + + | Ketones, | NEGATIVE | NEGATIVE mg/dL | EXTERNAL | | | Urine | | | LAB | | + + + + + + | Urobilinoge | NORMAL | NORMAL mg/dL | EXTERNAL | | | n, Urine | | | LAB | | + + + + + + | Bilirubin, | NEGATIVE | NEGATIVE mg/dL | EXTERNAL | | | Urine | | | LAB | | + + + + + + | Blood, | 150 | NEGATIVE /uL | EXTERNAL | | | Urine | | | LAB | | + + + + + + | White Blood | NONE SEEN | </= 5 /HPF | EXTERNAL | | | Cells, | | | LAB | | | Urine | | | | | + + + + + + | RBC | 0-2 | </= 5 PER HPF | EXTERNAL | | | | | | LAB | | + + + + + + | Bacteria, | FEW | NONE SEEN /HPF | EXTERNAL | | | UA | | | LAB | | + + + + + + | Culture | NO | | EXTERNAL | | | Indicated | | | LAB | | + + + + + + | Squamous | MODERATE | FEW /LPF | EXTERNAL | | | Epithelial | | | LAB | | | Cells, | | | | | | Urine | | | | | + + + + + + + + | Specimen | + + | | + + + +---------+ + + | Performing | Address | City/State/Zipcode | Phone Number | | Organization | | | | + +---------+ + + | EXTERNAL LAB | | | | + +---------+ + + Comprehensive Metabolic Panel (04/02/2015 8:46 AM PDT) + +-------+ + + + | Component | Value | Ref Range | Performed | Pathologist | | | | | At | Signature | + +-------+ + + + | Sodium | 138 | 132 - 143 | EXTERNAL | | | | | mmol/L | LAB | | + +-------+ + + + | Potassium | 3.9 | 3.3 - 4.9 | EXTERNAL | | | | | mmol/L | LAB | | + +-------+ + + + | Cl | 103 | 95 - 108 mmol/L | EXTERNAL | | | | | | LAB | | + +-------+ + + + | CO2 | 29 | 23 - 34 mmol/L | EXTERNAL | | | | | | LAB | | + +-------+ + + + | Anion Gap | 6 | 7 - 16 | EXTERNAL | | | | | | LAB | | + +-------+ + + + | Calcium | 8.6 | 8.3 - 10.0 | EXTERNAL | | | | | mg/dL | LAB | | + +-------+ + + + | Glucose | 93 | 70 - 110 mg/dL | EXTERNAL | | | | | | LAB | | + +-------+ + + + | BUN, Bld | 11 | 5 - 26 mg/dL | EXTERNAL | | | | | | LAB | | + +-------+ + + + | Creatinine | 0.7 | 0.6 - 1.3 mg/dL | EXTERNAL | | | | | | LAB | | + +-------+ + + + | BUN/Creatin | 15.7 | 7.0 - 24.0 | EXTERNAL | | | ine Ratio | | RATIO | LAB | | + +-------+ + + + | GFR | 60 | >=60 | EXTERNAL | | | ESTIMATE | | mL/min/1.73m2 | LAB | | | (REF) | | | | | + +-------+ + + + | Bilirubin, | 0.4 | <=1.2 mg/dL | EXTERNAL | | | Total | | | LAB | | + +-------+ + + + | Protein, | 7.4 | 6.6 - 8.5 g/dL | EXTERNAL | | | Total | | | LAB | | + +-------+ + + + | Albumin | 3.5 | 3.0 - 4.5 g/dL | EXTERNAL | | | | | | LAB | | + +-------+ + + + | Alkaline | 67 | 46 - 116 U/L | EXTERNAL | | | Phosphatase | | | LAB | | + +-------+ + + + | ALT, | 11 | 14 - 59 U/L | EXTERNAL | | | External | | | LAB | | + +-------+ + + + | AST, | 19 | <=38 U/L | EXTERNAL | | | External | | | LAB | | + +-------+ + + + + + | Specimen | + + | | + + + +---------+ + + | Performing | Address | City/State/Zipcode | Phone Number | | Organization | | | | + +---------+ + + | EXTERNAL LAB | | | | + +---------+ + + CBC w/ Auto Differential (04/02/2015 8:46 AM PDT) + +-------+ + + + | Component | Value | Ref Range | Performed | Pathologist | | | | | At | Signature | + +-------+ + + + | WBC | 4.8 | 4.3 - 10.4 | EXTERNAL | | | | | 1000/mm3 | LAB | | + +-------+ + + + | RBC | 4.57 | 4.12 - 5.30 | EXTERNAL | | | | | mil/mm3 | LAB | | + +-------+ + + + | HGB, | 13.9 | 12.4 - 15.7 | EXTERNAL | | | External | | g/dL | LAB | | + +-------+ + + + | HCT, | 38.6 | 37.7 - 47.0 % | EXTERNAL | | | External | | | LAB | | + +-------+ + + + | MCV | 84 | 82 - 97 fl | EXTERNAL | | | | | | LAB | | + +-------+ + + + | MCH | 30.4 | 27.1 - 32.3 pg | EXTERNAL | | | | | | LAB | | + +-------+ + + + | MCHC | 36 | 32.0 - 36.9 | EXTERNAL | | | | | g/dL | LAB | | + +-------+ + + + | RDW-CV | 13.9 | <=17.0 % | EXTERNAL | | | | | | LAB | | + +-------+ + + + | Platelet | 270 | 150 - 450 | EXTERNAL | | | Count | | 1000/mm3 | LAB | | | Plasma | | | | | + +-------+ + + + | MPV | 8.8 | 9.4 - 12.3 FL | EXTERNAL | | | | | | LAB | | + +-------+ + + + | % Segmented | 50.4 | 42.0 - 76.0 % | EXTERNAL | | | | | | LAB | | | Neutrophils | | | | | + +-------+ + + + | LYMPH % | 42 | 20.0 - 40.0 % | EXTERNAL | | | | | | LAB | | + +-------+ + + + | % Monocytes | 7.6 | <=12.0 % | EXTERNAL | | | | | | LAB | | + +-------+ + + + | Absolute | 2.4 | 2.50 - 8.50 | EXTERNAL | | | Neutrophils | | 1000/mm3 | LAB | | + +-------+ + + + | Absolute | 2 | 1.00 - 3.80 | EXTERNAL | | | Lymphocytes | | 1000/mm3 | LAB | | + +-------+ + + + | Absolute | 0.4 | <=1.25 1000/mm3 | EXTERNAL | | | Monocytes | | | LAB | | + +-------+ + + + | SLIDE | NO | | EXTERNAL | | | REVIEW | | | LAB | | + +-------+ + + + + + | Specimen | + + | | + + + +---------+ + + | Performing | Address | City/State/Zipcode | Phone Number | | Organization | | | | + +---------+ + + | EXTERNAL LAB | | | | + +---------+ + + documented in this encounter Visit Diagnoses Not on filedocumented in this encounter"
[~2020-03-01 11:13] MED LIST: CLARINEX-D 121 EACH PO; IBUPROFEN200 MG PO; NORCO 5-325 TA1 EACH PO
--- NOTE | 2020-03-12 10:04 | PR ---
[facility] [address] [place], [place] [address] Signed Progress Notes IP Datetime Report Generated by JOSE: 03/12/2020 10:04 PROGRESS NOTES: [id number] Impression: Normal Progression of Labor Plan: Continue Present Management; Anesthesia Consult Other Informed Consents: AROM VITAL SIGNS: [id number] Vital Signs: Reviewed; Within Normal Limits EXAM: [id number] Dilatation: 2.0 Effacement: 60 Station: -3 MEMBRANES: [id number] Comments: Pt seen and examined. Doing well, but quite painful w/ contractions. Discussed options for continued management. Pt would like to soak in tub and then would like epidural prior to AROM. Will plan AROM after epidural FETUS A: [id number] FHR Baseline: 145 Variability: Moderate 6-25bpm Accelerations: 10X10 Decelerations: Late FHR Category: Category II Presentation: Vertex Comments on Fetus A: No evidence of metabolic acidosis. One isolated late deceleration FETUS B: [id number] Signing Physician: Ngozi Maurer DO Copies: ~ *Electronically Signed* 03/12/20 1004 NGOZI MAURER DO PATIENT NAME: ROMAN WALLER PROGRESS NOTE DATE OF : 93 PHYSICIAN: NGOZI MAURER DO RPT #: [id number] REPORT IS CONFIDENTIAL AND NOT TO BE RELEASED WITHOUT AUTHORIZATION
--- NOTE | 2020-03-12 12:24 | PR ---
[facility] [address] [facility] [place], [place] [address] Signed Progress Notes IP Datetime Report Generated by CPN: 03/12/2020 12:24 PROGRESS NOTES: [id number] Impression: Normal Progression of Labor; Reassuring Heart Rate Procedures: Artificial ROM; Scalp Electrode Plan: Continue Present Management Other Informed Consents: AROM VITAL SIGNS: [id number] Vital Signs: Reviewed; Within Normal Limits EXAM: [id number] Dilatation: 2.0 Effacement: 60 Station: -3 MEMBRANES: [id number] Comments: Pt seen and examined. Doing well. Comfortable w/ epidural. AROM attempted but membranes tight against vertex. FSE placed without difficulty. Pt and baby tolerated well. Continue expectant management. FETUS A: [id number] FHR Baseline: 145 Variability: Moderate 6-25bpm Accelerations: 10X10 Decelerations: Late FHR Category: Category II Presentation: Vertex Comments on Fetus A: No evidence of metabolic acidosis. One isolated late deceleration FETUS B: [id number] Signing Physician: Ngozi Maurer DO Copies: ~ *Electronically Signed* 03/12/20 1224 NGOZI MAURER DO PATIENT NAME: ROMAN WALLER PROGRESS NOTE DATE OF : [birth year] PHYSICIAN: NGOZI MAURER DO RPT #: [id number] REPORT IS CONFIDENTIAL AND NOT TO BE RELEASED WITHOUT AUTHORIZATION
--- NOTE | 2020-03-12 16:06 | PR ---
[facility] [address] [facility] [place], [place] [address] Signed Progress Notes IP Datetime Report Generated by CPN: 03/12/2020 16:06 PROGRESS NOTES: [id number] Impression: Normal Progression of Labor; Reassuring Heart Rate Procedures: Sterile Vag Exam Plan: Continue Present Management Other Informed Consents: AROM VITAL SIGNS: [id number] Vital Signs: Reviewed; Within Normal Limits EXAM: [id number] Dilatation: 7.0 Effacement: 90 Station: -1 MEMBRANES: [id number] Comments: Pt seen and examined. Doing well. Comfortable w/ rebolus of epidural. FHT reassuring with few variable decelerations noted. Continued moderate variability. Continue expectant management. All questions answered FETUS A: [id number] FHR Baseline: 145 Variability: Moderate 6-25bpm Accelerations: 10X10 Decelerations: Late FHR Category: Category II Presentation: Vertex Comments on Fetus A: No evidence of metabolic acidosis. One isolated late deceleration FETUS B: [id number] Signing Physician: Ngozi Maurer DO Copies: ~ *Electronically Signed* 03/12/20 1606 NGOZI MAURER DO PATIENT NAME: ROMAN WALLER PROGRESS NOTE DATE OF : 93 PHYSICIAN: NGOZI MAURER DO RPT #: [id number] REPORT IS CONFIDENTIAL AND NOT TO BE RELEASED WITHOUT AUTHORIZATION
--- NOTE | 2020-03-12 18:52 | PR ---
[facility] [address] [facility] [place], [place] [address] Signed Progress Notes IP Datetime Report Generated by JOSE: 03/12/2020 18:51 PROGRESS NOTES: [id number] Impression: Normal Progression of Labor; Reassuring Heart Rate Procedures: Intrauterine Pressure Catheter; Sterile Vag Exam Plan: Continue Present Management; Anticipate Vaginal Delivery Informed Consent Obtain: Vaginal Delivery Other Informed Consents: AROM VITAL SIGNS: [id number] Vital Signs: Reviewed; Within Normal Limits EXAM: [id number] Dilatation: 8.0 Effacement: 95 Station: 0 MEMBRANES: [id number] Comments: Pt seen and examined. Doing well. Very uncomfortable w/ contractions; requesting rebolus of epidural. 9cm; IUPC placed without difficulty after reviewing w/ pt. Anesthesia notified. Anticipate FETUS A: [id number] FHR Baseline: 145 Variability: Moderate 6-25bpm Accelerations: 10X10 Decelerations: Late FHR Category: Category II Presentation: Vertex Comments on Fetus A: No evidence of metabolic acidosis. One isolated late deceleration FETUS B: [id number] Signing Physician: Ngozi Maurer DO Copies: ~ *Electronically Signed* 03/12/20 172 NGOZI MAURER DO PATIENT NAME: ROMAN WALLER PROGRESS NOTE DATE OF : 93 PHYSICIAN: NGOZI MAURER DO RPT #: [id number] REPORT IS CONFIDENTIAL AND NOT TO BE RELEASED WITHOUT AUTHORIZATION
--- NOTE | 2020-03-12 21:14 | PR ---
[facility] [address] [place], [place] [address] Signed Progress Notes IP Datetime Report Generated by JOSE: 03/12/2020 21:13 PROGRESS NOTES: [id number] Impression: Reassuring Heart Rate Other Impressions: Slow progress of labor Procedures: Sterile Vag Exam Plan: Augmentation Informed Consent Obtain: Vaginal Delivery Other Informed Consents: augmentation w/ pitocin VITAL SIGNS: [id number] Vital Signs: Reviewed; Within Normal Limits EXAM: [id number] Dilatation: 9.0 Effacement: 90 Station: 0 MEMBRANES: [id number] Comments: Pt seen and examined. Doing well. Comfortable w/ contractions. Unchanged since last exam. CTXs borderline adequate. Discussed option of expectant management vs augmentation w/ low dose pitocin. Pt and desire augmentation. Start low dose pit per protocol. Discussed indications for if needed. Pt understands and agrees. FETUS A: [id number] FHR Baseline: 145 Variability: Moderate 6-25bpm Accelerations: 10X10 Decelerations: Late FHR Category: Category II Presentation: Vertex Comments on Fetus A: No evidence of metabolic acidosis. One isolated late deceleration FETUS B: [id number] Signing Physician: Ngozi Maurer DO Copies: ~ *Electronically Signed* 03/12/20 4897 NGOZI MAURER DO PATIENT NAME: ROMAN WALLER PROGRESS NOTE DATE OF : 93 PHYSICIAN: NGOZI MAURER DO RPT #: [id number] REPORT IS CONFIDENTIAL AND NOT TO BE RELEASED WITHOUT AUTHORIZATION
--- NOTE | 2020-03-12 22:54 | PR ---
[facility] [address] [place], [place] [address] Signed Progress Notes IP Datetime Report Generated by JOSE: 03/12/2020 22:54 PROGRESS NOTES: [id number] Impression: Reassuring Heart Rate Other Impressions: Slow cevical change Procedures: Sterile Vag Exam Plan: Continue Present Management Informed Consent Obtain: Section Delivery; Risks, Benefits and Alternatives Discussed Other Informed Consents: Reviewed shoulder dystocia in detail VITAL SIGNS: [id number] Vital Signs: Reviewed; Within Normal Limits EXAM: [id number] Dilatation: 9.0 Effacement: 90 Station: 0 MEMBRANES: [id number] Comments: Pt seen and examined. Cervix unchanged despite adequate contractions. Discussed options for continued management; discussed continued trial of vaginal delivery vs primary LTCS. Discussed exam suggest adequate pelvis for estimated weight. Reviewed YENIFER positioning. Discussed delivery in detail. Reviewed risk of shoulder dystocia in detail incluiding unpredicable nature, possible maternal or sequalea (musculoskeletal injury, central or periphral nervous system injury, and ), and maneuvers employed should dystocia be encountered. Pt and would like to continue w/ trial of vaginal delivery. Will recheck in one hour. If unchanged would recommend C/S. Pt understands and agrees. FETUS A: [id number] FHR Baseline: 145 Variability: Moderate 6-25bpm Accelerations: 10X10 Decelerations: Late FHR Category: Category II Presentation: Vertex Comments on Fetus A: No evidence of metabolic acidosis. One isolated late deceleration FETUS B: [id number] Signing Physician: Ngozi Maurer DO *Electronically Signed* 03/12/20 [facility]4 NGOZI MAURER DO PATIENT NAME: ROMAN WALLER PROGRESS NOTE DATE OF : 93 PHYSICIAN: NGOZI MAURER DO RPT #: [id number] REPORT IS CONFIDENTIAL AND NOT TO BE RELEASED WITHOUT AUTHORIZATION [facility] [address] [place] [place] [address] Signed Copies: ~ *Electronically Signed* 03/12/20 [facility] MAURERNGOZI DO PATIENT NAME: ROMAN WALLER PROGRESS NOTE DATE OF : 93 PHYSICIAN: NGOZI MAURER DO RPT #: [id number] REPORT IS CONFIDENTIAL AND NOT TO BE RELEASED WITHOUT AUTHORIZATION
--- NOTE | 2020-03-12 23:59 | PR ---
[facility] [address] [place], [place] [address] Signed Progress Notes IP Datetime Report Generated by CPGrant: 03/12/2020 23:59 PROGRESS NOTES: [id number] Impression: Arrest of Dilatation/Descent; Reassuring Heart Rate Other Impressions: Slow cevical change Procedures: Sterile Vag Exam Plan: Deliver- Section Informed Consent Obtain: Section Delivery Other Informed Consents: Reviewed shoulder dystocia in detail VITAL SIGNS: [id number] Vital Signs: Reviewed; Within Normal Limits EXAM: [id number] Dilatation: 9.0 Effacement: 90 Station: 0 MEMBRANES: [id number] Comments: Pt seen and examined. No cervical change again noted despite adequate ctxs on pitocin. Cervix more swollen anteriorly and no descent noted. YENIFER position noted. Discussed options and recommended primary LTCS for failure to progress. Reviewed risk/benefits/alternatives in detail. Risks include but are not limited to infection, injury to surrounding GI/ structures, difficult extraction, and bleeding. Discussed implications of on future . All questions answered and pt and understand and agree. Consents signed. Plan Ancef 2 g IV. OR crew notified FETUS A: [id number] FHR Baseline: 145 Variability: Moderate 6-25bpm Accelerations: 10X10 Decelerations: Late FHR Category: Category II Presentation: Vertex Comments on Fetus A: No evidence of metabolic acidosis. One isolated late deceleration FETUS B: [id number] Signing Physician: Ngozi Maurer DO Copies: *Electronically Signed* 03/12/20 6501 NGOZI MAURER DO PATIENT NAME: ROMAN WALLER PROGRESS NOTE DATE OF : 93 PHYSICIAN: NGOZI MAURER DO RPT #: [id number] REPORT IS CONFIDENTIAL AND NOT TO BE RELEASED WITHOUT AUTHORIZATION [facility] [address] [place] [place] [address] Signed ~ *Electronically Signed* 03/12/20 2359 MAURERNGOZI DO PATIENT NAME: ROMAN WALLER PROGRESS NOTE DATE OF : 93 PHYSICIAN: NGOZI MAURER DO RPT #: [id number] REPORT IS CONFIDENTIAL AND NOT TO BE RELEASED WITHOUT AUTHORIZATION
--- NOTE | 2020-03-13 02:15 | NUR ---
03/13/20 0215 Brian Fuentes 0147) AWAKE AND ALERT WITH SLIGHT PAIN TO INCISIONAL AREA. SPOUSE AND BABY AT BEDSIDE. FBC RN IN ROOM. 0205 REPORT TO KITTY WILLIAM (FBC RN) THAT WAS IN ROOM THROUGHOUT RECOVERY.
--- NOTE | 2020-03-13 12:42 | NUR ---
CONNECTED WITH THE OF THE PT AND HWO IS ALSO A DAD FOR THE FIRST TIME. HIS NAME IS JUAN DIEGO AND HE IS SO EXCITED. HIS FIRST CONCERN IS THAT MOM AND BABY ARE WELL. GAVE ENCOURAGEMENT AND BLESSING. WILL FOLLOW NEEDED
--- NOTE | 2020-03-13 18:23 | PR ---
[facility] [address] [facility] [place], [place] [address] Signed PP Progress Notes Datetime Report Generated by CPN: 03/13/2020 18:23 SUBJECTIVE: [id number] Pain: Within Normal Limits Nausea/Vomiting: Denies Flatus: Yes Bowel Movement: No Vital Signs: [id number] Vital Signs: Reviewed; Within Normal Limits EXAM: Ongoing Cardiovascular: Normal Respiratory: Normal Abdomen/Uterus: Normal Lochia: Normal Vulva/Perineum: Not Done Breasts: Not Done CVA Tenderness: Normal Extremities: Normal Incision: Normal Progress: Normal Exam Comments: Fundus firm Nontender, incision bandaged IMPRESSION/PLAN/PROCEDURES: [id number] Impression: Normal Progression Plan: Continue Present Management Progress Notes: Pt seen and examined. Doing well. Ambulating and tolerating full diet. Pain and lochia minimal. well. No fevers/chills. No other concerns. Plan: d/c bassett cath this evening. Continue routine postop/ care. Signing Physician: Ngozi Maurer DO Copies: ~ *Electronically Signed* 03/13/20 1823 NGOZI MAURER DO PATIENT NAME: ROMAN WALLER PROGRESS NOTE DATE OF : 93 PHYSICIAN: NGOZI MAURER DO RPT #: [id number] REPORT IS CONFIDENTIAL AND NOT TO BE RELEASED WITHOUT AUTHORIZATION
--- NOTE | 2020-03-14 07:51 | PR ---
[facility] [address] [facility] [place], [place] [address] Signed PP Progress Notes Datetime Report Generated by CPN: 03/14/2020 07:51 SUBJECTIVE: [id number] Pain: Within Normal Limits Nausea/Vomiting: Denies Flatus: Yes Bowel Movement: No Vital Signs: [id number] Vital Signs: Reviewed; Within Normal Limits EXAM: Ongoing Cardiovascular: Normal Respiratory: Normal Abdomen/Uterus: Normal Lochia: Normal Vulva/Perineum: Not Done Breasts: Not Done CVA Tenderness: Normal Extremities: Normal Incision: Normal Progress: Normal Exam Comments: Fundus firm U-2 nontender. . Incision clean / dry IMPRESSION/PLAN/PROCEDURES: [id number] Impression: Normal Progression Plan: Continue Present Management Progress Notes: Pt doing well postop day #1. Ambulating, voiding, and tolerating full diet. Pain and lochia minimal. well. No fevers/chill/lightheadedness or other concerns. Anticipate d/c home tomorrow. Signing Physician: Ngozi Maurer DO Copies: ~ *Electronically Signed* 03/14/20 0751 NGOZI MAURER DO PATIENT NAME: ROMAN WALLER PROGRESS NOTE DATE OF : 93 PHYSICIAN: NGOZI MAURER DO RPT #: [id number] REPORT IS CONFIDENTIAL AND NOT TO BE RELEASED WITHOUT AUTHORIZATION
--- NOTE | 2020-03-14 12:42 | PR ---
[facility] [address] [facility] [place], [place] [address] Signed PP Progress Notes Datetime Report Generated by CPN: 03/14/2020 12:42 SUBJECTIVE: [id number] Pain: Within Normal Limits Nausea/Vomiting: Denies Flatus: Yes Bowel Movement: No Vital Signs: [id number] Vital Signs: Reviewed; Within Normal Limits EXAM: Ongoing Cardiovascular: Normal Respiratory: Normal Abdomen/Uterus: Normal Lochia: Normal Vulva/Perineum: Not Done Breasts: Normal CVA Tenderness: Normal Extremities: Normal Incision: Normal Progress: Normal Exam Comments: Fundus firm U-2, nontender. Incision well healing w/ maciel in place IMPRESSION/PLAN/PROCEDURES: [id number] Impression: Normal Progression Plan: Discharge Progress Notes: Pt seen and examined. discharged home by peds and pt desires d/c home. D/C instructions reviewed in detail. Signing Physician: Ngozi Maurer DO Copies: ~ *Electronically Signed* 03/14/20 1242 NGOZI MAURER DO PATIENT NAME: ROMAN WALLER PROGRESS NOTE DATE OF : 93 PHYSICIAN: NGOZI MAURER DO RPT #: [id number] REPORT IS CONFIDENTIAL AND NOT TO BE RELEASED WITHOUT AUTHORIZATION
== END 2020-03-14 15:30 | disposition home or self-care (01) | DRG 788 ==
LOC: FBC 11:13
PROVIDERS: ADMIT Obstetrics & Gynecology; ATTEND Obstetrics & Gynecology
PROC: 10907ZC Drainage of Amniotic Fluid, Therapeutic from Products of Conception, Via Natural or Artificial Opening (ICD-10-PCS; 2020-03-12)
PROC: 10H07YZ Insertion of Other Device into Products of Conception, Via Natural or Artificial Opening (ICD-10-PCS; 2020-03-12)
PROC: 00HU33Z Insertion of Infusion Device into Spinal Canal, Percutaneous Approach (ICD-10-PCS; 2020-03-12)
PROC: 3E0R3BZ Introduction of Anesthetic Agent into Spinal Canal, Percutaneous Approach (ICD-10-PCS; 2020-03-12)
PROC: 10D00Z1 Extraction of Products of Conception, Low, Open Approach (ICD-10-PCS; principal; 2020-03-13 12:30)
DX: O64.0XX0 Obstructed labor due to incomplete rotation of fetal head, not applicable or unspecified (principal); O76 Abnormality in fetal heart rate and rhythm complicating labor and delivery; Z37.0 Single live birth; O62.1 Secondary uterine inertia; Z3A.41 41 weeks gestation of pregnancy; O48.0 Post-term pregnancy
CPT/HCPCS: 01961; 36415; 85027; A9270; J0690; J1100; J1885; J2001; J2274; J2370; J2405; J2590; J2795; J3010; J7121

== ENCOUNTER 2025-03-12 17:14 | Inpatient (IN) | payer OTHER ==
[~2025-03-12] VITALS: Ht 152.4 cm; Wt 78.5 kg
[2025-03-22] MEDS ORDERED: LACTATED RINGER'S 1,000 ML IV PRN (05:30)
[2025-03-22] MEDS ORDERED: SOD+POT BICARB/CITRIC ACID 2 EA TABLET.EFF PO ONE (05:30)
[2025-03-22 06:07] LABS: MCH 28.3 PG (25.6-32.2); MCHC 33.6 g/dL (32.2-35.5); MCV 84.1 fL (79.4-94.8); RBC 4.1 M/uL (3.93-5.22)
[2025-03-22 06:18] VITALS: BP 121/72
[2025-03-22 06:30] LABS: AMPHETAMINES, URINE NEGATIVE (NEGATIVE); BARBITURATES, URINE NEGATIVE (NEGATIVE); BENZODIAZEPINE, URINE NEGATIVE (NEGATIVE); CANNABINOID, URINE NEGATIVE (NEGATIVE); COCAINE, URINE NEGATIVE (NEGATIVE); ECSTASY, URINE NEGATIVE (NEGATIVE); FENTANYL, URINE NEGATIVE (NEGATIVE); METHADONE, URINE NEGATIVE (NEGATIVE); OPIATES, URINE NEGATIVE (NEGATIVE); OXYCODONE, URINE NEGATIVE (NEGATIVE); PHENCYCLIDINE, URINE NEGATIVE (NEGATIVE)
[2025-03-22] MEDS ORDERED: TRANEXAMIC ACID IN NACL,ISO-OS 0 ML IV ONE (06:39)
[2025-03-22 06:45] LABS: ABO B; ANTIBODY SCREEN NEGATIVE; RH POSITIVE
[2025-03-22] MEDS ORDERED: HYDROmorphone HCL 1 MG/ML SYR IV PRN (07:00)
[2025-03-22] MEDS ORDERED: fentaNYL citrate 50 MCG/ML SDV IV PRN (07:00)
[2025-03-22] MEDS ORDERED: CEFAZOLIN SODIUM 2 GM in SODIUM CHLORIDE 0.9% 100 ML IV SCH (07:00)
[2025-03-22] MEDS ORDERED: NALOXONE HCL 0.4 MG SYR IV PRN (07:00)
[2025-03-22] MEDS ORDERED: IBLOOD GLUCOSE TEST STRIP 1 EA TEST VI PRN (07:00)
[2025-03-22] MEDS ORDERED: OXYTOCIN 10 UNITS/ML VIAL ONE (07:09)
[2025-03-22] MEDS ORDERED: fentaNYL citrate 100 MCG/2 ML VIAL ONE (07:09)
[2025-03-22] MEDS ORDERED: LIDOCAINE HCL 2% 5 ML SDV ONE (07:09)
[2025-03-22] MEDS ORDERED: BUPIVACAINE 0.75% IN DEXTROSE 2 ML AMP ONE (07:09)
[2025-03-22] MEDS ORDERED: DEXAMETHASONE SOD PHOS 4 MG/ML VIAL ONE (07:15)
[2025-03-22] MEDS ORDERED: OXYTOCIN/0.9 % SODIUM CHLORIDE 500 ML IV ONE (07:18)
[2025-03-22] MEDS ORDERED: SODIUM CHLORIDE 0.9% 20 ML IV ONE (07:31)
[2025-03-22] MEDS ORDERED: SODIUM CHLORIDE 0.9% 40 ML IV ONE (08:06)
[2025-03-22] MEDS ORDERED: ACETAMINOPHEN 1,000 MG/100 ML VIAL ONE (08:06)
[2025-03-22] MEDS ORDERED: Ropivacaine HCl 0.5% 30 ML VIAL ONE (08:08)
[2025-03-22] MEDS ORDERED: PROMETHAZINE HCL 25 MG TAB PO PRN (08:45)
[2025-03-22] MEDS ORDERED: PROCHLORPERAZINE EDISYLATE 10 MG/2 ML VIAL IV PRN (08:45)
[2025-03-22] MEDS ORDERED: LACTATED RINGER'S 1,000 ML IV SCH (08:45)
[2025-03-22] MEDS ORDERED: LIDOCAINE 2% VISCOUS 6 ML SYR TOP ONE (08:45)
[2025-03-22] MEDS ORDERED: OXYCODONE HCL 5 MG TAB PO PRN (08:45)
[2025-03-22] MEDS ORDERED: HYDROCODONE/ACETA 5/325 TAB PO PRN (08:45)
[2025-03-22] MEDS ORDERED: OXYTOCIN/0.9 % SODIUM CHLORIDE 500 ML IV SCH (08:45)
[2025-03-22] MEDS ORDERED: METOCLOPRAMIDE HCL 10 MG/2 ML SDV IV PRN (08:45)
[2025-03-22] MEDS ORDERED: PROMETHAZINE HCL 25 MG SUPP PR PRN (08:45)
[2025-03-22] MEDS ORDERED: IBUPROFEN 600 MG TAB PO SCH (08:45)
[2025-03-22] MEDS ORDERED: SENNOSIDES/DOCUSATE 1 EA TAB PO SCH (09:00)
--- NOTE | 2025-03-22 09:20 | NUR ---
03/22/25 0920 Aimee Guillaume 0840- FUNDAL CHECK DONE IN THE OR, SMALL AMOUNT OF RED DRAINAGE NOTED. 0846- PT RETURNS FROM THE OR TO ROOM 104. PT DENIES PAIN AND NAUSEA. IV INFUSING IN L FOREARM WNL. DEAN CATHETER IS DRAINING CLEAR, YELLOW URINE. BED IS LOCKED AND PLUGGED IN. ALL MONITORS PUT IN PLACE. BEDSIDE REPORT RECIEVED FROM CRNA. ANIBAL
[2025-03-22 09:37] VITALS: BP 107/62
[2025-03-22] MEDS ORDERED: SIMETHICONE 80 MG CHEW PO SCH (11:00)
[2025-03-22] MEDS ORDERED: ACETAMINOPHEN 500 MG TAB PO SCH (14:00)
[2025-03-23] MEDS ORDERED: LACTATED RINGER'S 1,000 ML IV SCH (05:00)
--- NOTE | 2025-03-24 10:38 | OR ---
[address] [address] Signed DATE OF OPERATION: 03/22/2025 SURGEON: Edu Jackman MD PREOPERATIVE DIAGNOSES: 1. Intrauterine at 39 and 1/7th weeks. 2. Prior section, declines trial of labor after . POSTOPERATIVE DIAGNOSES: 1. Intrauterine at 39 and 1/7th weeks. 2. Prior section, declines trial of labor after . PROCEDURE: Repeat low transverse section. FINDINGS: Clear amniotic fluid. Vertex presentation. Vigorous female infant, Apgars of 9 and 9, weight of 7 pounds 7 ounces. Normal uterus, normal fallopian tubes. Normal left ovary. Right ovary surgically absent. ANESTHESIA: Spinal. APPLICATIONS DEVELOPMENT CONSULTANT: Arabella Kong CNM. IV FLUIDS: 1300 mL crystalloid. QUANTITATIVE BLOOD LOSS: 690 mL. URINE OUTPUT: 50 mL, clear urine. DRAINS: Hull to gravity. SPECIMENS: None. Electronically Signed By: EDU JACKMAN MD 03/24/25 1038 PATIENT NAME: ROMAN WALLER OPERATIVE REPORT DATE OF : 93 REPORT #: [id number] PHYSICIAN: EDU JACKMAN MD PCP: KONSTANTIN BENNETT REPORT IS CONFIDENTIAL AND NOT TO BE RELEASED WITHOUT AUTHORIZATION [address] [address] Signed COUNTS: Correct x2. COMPLICATIONS: None apparent. TECHNIQUE IN DETAIL: With informed consent, patient was taken to the operating room where spinal analgesia was placed without difficulty. She was given 2 g of Ancef intravenously per protocol. Lower extremities were also placed in SCD pneumatic compression devices for DVT prophylaxis. She was prepped and draped in sterile fashion and time-out was performed per protocol. Under adequate analgesia, an approximately 7 inch Pfannenstiel skin incision was made and sharp dissection was carried down to the layer of the rectus fascia which was nicked in the midline. This fascial marcelino was enlarged bilaterally using sharp dissection. Rectus muscles were taken down from the fascia both superiorly and inferiorly using gentle traction and sharp dissection. The rectus muscles were in the midline at the most superior aspect. Peritoneum was entered sharply at the most superior aspect. Once we entered the perineum, a finger sweep of the anterior abdominal wall was performed to ensure no adhesions and none were found. The rectus muscles were then inferiorly using sharp dissection paying careful attention to the location of the urinary bladder. We opened up the perineum, initially sharp dissection and then with some blunt dissection. A bladder blade was then placed. Uterus was examined and found to be within normal limits and not rotated. We identified the location of the urinary bladder. Using a scalpel, a low transverse uterine incision was made and sharp dissection was carried down to superficial layers. Using the blunt end of the scalpel this uterine incision was enlarged. Surgeon's fingers were then placed into the hysterotomy site and the uterine incision was enlarged with blunt dissection in a superior to inferior direction. The bulging membranes were then ruptured with an Allis clamp releasing clear amniotic fluid. The surgeon's hand was then placed into the lower uterine segment. head was elevated and delivered with fundal pressure. There was no nuchal cord. The shoulders delivered easily with fundal pressure and gentle traction under the axilla. Delayed cord clamping approximately 10 seconds was performed and then the cord was clamped x2 and cut. Baby was handed to the transition team. The uterus was externalized and the left and right aspects of the hysterotomy site were clamped with ring forceps. The placenta was removed with gentle traction and fundal massage. The uterine cavity was curetted with laparotomy sponges. The uterine incision Electronically Signed By: EDU JACKMAN MD 03/24/25 1038 PATIENT NAME: ROMAN WALLER OPERATIVE REPORT DATE OF : [birth year] REPORT #: [id number] PHYSICIAN: EDU JACKMAN MD PCP: KONSTANTIN BENNETT REPORT IS CONFIDENTIAL AND NOT TO BE RELEASED WITHOUT AUTHORIZATION [facility] [address] [place] [address] Signed was then closed with 0 Monocryl first in a running locked fashion and then with a second layer in an imbricating fashion. There was one area of oozing on the right aspect which was rendered hemostatic with an 0 Monocryl mattress suture. Good uterine tone was achieved with intravenous oxytocin as well as Methargen IM x1. The adnexa were then examined with the above-mentioned findings. The posterior cul-de-sac was then cleared of all clot and blood. The uterine incision was examined again and found to be hemostatic as was the bladder. The uterus was returned to the pelvis. The left and right pericolic gutters were cleared of all blood and clot. The rectus muscles and peritoneum were reapproximated with 2-0 chromic and in a running fashion. The rectus muscles were inspected and found to be hemostatic. The fascia was reapproximated with 0 Vicryl in a running fashion. Superficial incision was irrigated and rendered hemostatic with electrocautery. The subcutaneous tissue was reapproximated using 2-0 chromic in a running fashion and the skin was reapproximated using the Insorb stapler device. DISPOSITION: The patient and baby were taken to the recovery room in stable condition. Edu Jackman MD BB/MODL /[id number] Copies: ~ Electronically Signed By: EDU JACKMAN MD 03/24/25 1038 PATIENT NAME: ROMAN WALLER OPERATIVE REPORT DATE OF : [birth year] REPORT #: [id number] PHYSICIAN: EDU JACKMAN MD PCP: KONSTANTIN BENNETT REPORT IS CONFIDENTIAL AND NOT TO BE RELEASED WITHOUT AUTHORIZATION
== END 2025-03-24 12:15 | disposition home or self-care (01) | DRG 788 ==
LOC: FBC 03-22 05:16
PROVIDERS: ADMIT Obstetrics & Gynecology; ATTEND Obstetrics & Gynecology
PROC: 3E03329 Introduction of Other Anti-infective into Peripheral Vein, Percutaneous Approach (ICD-10-PCS; 2025-03-22)
PROC: 10D00Z1 Extraction of Products of Conception, Low, Open Approach (ICD-10-PCS; principal; 2025-03-22 07:30)
DX: O34.211 Maternal care for low transverse scar from previous cesarean delivery (principal); Z3A.39 39 weeks gestation of pregnancy; Z37.0 Single live birth
CPT/HCPCS: 01961; 36415; 80307; 85027; 86850; 86900; 86901; A9270; J0131; J0688; J1100; J2003; J2405; J2590; J2795; J3010